=== PATIENT | female | born 1960 | race American Indian/Alaskan Native ===

== ENCOUNTER 2017-09-27 07:32 | Day surgery (SDC) | payer MEDICARE ==
[2017-09-27 08:48] LABS: Basophils % (Auto) 1.1 % (0.0-1.8); Eosinophils % (Auto) 1.7 % (0.0-4.3); Hematocrit 46.8 % (30.3-42.9); Hemoglobin 15.6 gm/dl (10.1-14.3); Mean Corpuscular HGB Conc 33 % (30-34); Mean Corpuscular Hemoglobin 29 pg (28-32); Mean Corpuscular Volume 87 fl (79-97); Platelet Count 200 K/mm3 (140-440); Red Blood Count 5.41 M/mm3 (3.65-5.03); Red Cell Distribution Width 14.5 % (13.2-15.2); White Blood Count 6.9 K/mm3 (4.5-11.0)
[2017-09-27] MEDS ORDERED: NACL 0.9% 500 ML 500 ML IV SCH (09:00)
[2017-09-27] MEDS ORDERED: ECOTRIN PO ONE (09:00)
[2017-09-27 09:04] LABS: Anion Gap 17 mmol/L; BUN/Creatinine Ratio 28; Blood Urea Nitrogen 14 mg/dL (7-17); Calcium 8.7 mg/dL (8.4-10.2); Carbon Dioxide 23 mmol/L (22-30); Glucose 204 mg/dL (65-100); Potassium 4.3 mmol/L (3.6-5.0); Sodium 140 mmol/L (137-145)
[2017-09-27] MEDS ORDERED: XYLOCAINE 2% INFILTRATI ONE (09:37)
[2017-09-27] MEDS ORDERED: HEPARIN/NS 5000 UNIT/500ML(CATH LAB) 1,000 ML IR ONE (09:37)
[2017-09-27] MEDS ORDERED: HEPARIN 10,000 UNITS/10 ML ONE (09:37)
[2017-09-27] MEDS ORDERED: CALAN ONE (09:37)
[2017-09-27] MEDS ORDERED: NITROGLYCERIN SYRINGE 0 ML ONE (09:38)
[2017-09-27] MEDS ORDERED: VERSED ONE (09:38)
[2017-09-27] MEDS: SUBLIMAZE ONE ×2 (09:55→10:00)
--- NOTE | 2017-09-27 10:34 | Short Stay Summary ---
Short Stay Documentation Date of service: 09/27/17 - History H&P: obtained from office - Allergies and Medications Current Medications: Allergies codeine Allergy (Verified 12/21/14 10:11) Anaphylaxis clindamycin Adverse Reaction (Verified 03/05/15 20:37) Unknown Home Medications Medication Instructions Recorded Confirmed Last Taken Type Furosemide [Lasix TAB] 40 mg PO QDAY 09/27/17 09/27/17 09/26/17 History Insulin Aspart [NovoLOG Flexpen] 15 units SQ TIDWM 09/27/17 09/27/17 09/26/17 History Insulin Detemir [Levemir Flextouch] 25 unit SQ QAM 09/27/17 09/27/17 09/26/17 History Insulin Detemir [Levemir Flextouch] 75 unit SQ QHS 09/27/17 09/27/17 09/26/17 History Valsartan [Diovan] 320 mg PO QDAY 09/27/17 09/27/17 09/27/17 06:00 History amLODIPine [Norvasc] 10 mg PO DAILY 09/27/17 09/27/17 09/27/17 06:00 History metFORMIN [Glucophage] 500 mg PO QDAY 09/27/17 09/27/17 09/26/17 History Active Medications Sodium Chloride (Nacl 0.9% 500 Ml) 500 mls @ 50 mls/hr IV DIRECT LUL Stop: 09/27/17 18:59 Last Admin: 09/27/17 09:33 Dose: 50 mls/hr - Physical exam General appearance: no acute distress Integumentary: no rash HEENT: Atraumatic Lungs: Clear to auscultation Breasts: deferred Heart: Regular rate Gastrointestinal: normal Female Genitourinary: deferred Rectal Exam: deferred Extremities: no ischemia Neurological: Normal gait - Brief post op/procedure progress note Date of procedure: 09/27/17 Pre-op diagnosis: CMP, abnormal MPI Post-op diagnosis: same Procedure: LHC, RHC and LV gram Anesthesia: MAC Findings: See report Surgeon: SABRA ROBERTS Estimated blood loss: none Pathology: none Condition: stable - Hospital course Hospital course: Uneventful - Disposition Condition at discharge: Good Disposition: DC-[id number] TO HOME OR SELFCARE Short Stay Discharge Plan Activity: advance as tolerated Weight Bearing Status: Non-Weight Bearing Diet: low fat, low cholesterol, low salt, diabetic Special Instructions: hold Metformin (for 48 hours) Follow up with: JEFE BUCK MD [Primary Care Provider] - 7 Days
--- NOTE | 2017-09-27 11:39 | Cardiac Catherization Report ---
LEFT HEART CATHETERIZATION ORDERING PHYSICIAN: Elizabeth Huerta MD INDICATION FOR PROCEDURE: Cardiomyopathy, abnormal myocardial perfusion imaging, hypoxia at the time of anesthesia induction. PROCEDURES PERFORMED: 1. Selective left and right coronary angiography. 2. Left ventriculography. 3. Right heart catheterization with hemodynamic measurement and oxygen saturation run. DESCRIPTION OF PROCEDURE: After obtaining the consent, the patient was draped using sterile technique. 2% lidocaine was injected into the right groin. Using micropuncture technique, a 5-Trin[place] vascular sheath was inserted into the right common femoral artery and an 8-Trinidadian vascular sheath was inserted into the right common femoral vein. A 5-Trinid[place] JL4 catheter was used to selectively engage left coronary artery. A 5-Trinid[place] JR4 catheter was used to selectively engage the right coronary artery. A 5-Trinid[place] JR4 catheter was used to hand inject left ventriculogram. A 7-Trinidadian [place] catheter was used to measure right-sided hemodynamics and performed oxygen saturation run. No complications occurred during the procedure. Hemostasis was achieved at the end of the procedure using manual pressure. SPECIMEN REMOVED: None. ESTIMATED BLOOD LOSS: Minimal. FINDINGS: HEMODYNAMICS: 1. Aortic pressure 148/105. LV systolic pressure 143 mmHg and LV end diastolic pressure 29 mmHg. There was no significant gradient noted across left ventricular outflow tract. 2. Mean right atrial pressure was 19 mmHg. 3. Right ventricular systolic pressure 45 mmHg and right ventricular end diastolic pressure 19 mmHg. 4. Mean pulmonary artery pressure 37 mmHg. Pulmonary artery systolic pressure of 49 mmHg and the pulmonary artery diastolic pressure 28 mmHg. 5. The mean pulmonary capillary wedge pressure was 27 mmHg. 6. The Carlie cardiac output was 7.3 L per minute with a cardiac index of 3.69 L per minute per m sq. 7. Pulmonary artery saturation is 66%. The right ventricular saturation is 64%, right atrial saturation 70%, aortic saturation 87% and SVC saturation 65%. 8. Cardiac structures: Left ventricle appears to be mildly dilated. There is severe global left ventricular hypokinesis with an ejection fraction estimated between 25 and 30%. CORONARY ANATOMY: 1. This is a right dominant circulation. 2. The left main is a short, angiographically normal vessel. 3. The LAD has diffuse 10% nonobstructive luminal irregularities. There is evidence of a bridging of the mid to distal LAD. 4. The left circumflex artery has mild 10% nonobstructive luminal irregularities. 5. The right coronary artery has mild nonobstructive 10-20% luminal irregularities. The right coronary artery is dominant. IMPRESSION: 1. Evidence of elevated left and right-sided filling pressures. 2. Moderate pulmonary hypertension. 3. Preserved cardiac output. 4. No evidence of an intracardiac shunt. 5. Severe global left ventricular hypokinesis with an ejection fraction estimated 25 and 30%, consistent with nonischemic cardiomyopathy. 6. 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 RECOMMENDATIONS: 1. Continue current medical therapy. 2. P.o. diuresis and afterload reduction. JOB# [id number] MATTI/ZUNILDA
[2017-09-27 14:39] VITALS: BP 134/97
== END 2017-09-27 14:40 | disposition home or self-care (01) ==
LOC: CATHLABREC 07:32
PROVIDERS: ATTEND Internal Medicine
DX: R94.39 Abnormal result of other cardiovascular function study (principal); I42.0 Dilated cardiomyopathy; I27.20 Pulmonary hypertension, unspecified; F17.210 Nicotine dependence, cigarettes, uncomplicated; J44.9 Chronic obstructive pulmonary disease, unspecified; G47.30 Sleep apnea, unspecified; F41.9 Anxiety disorder, unspecified; F32.9 Major depressive disorder, single episode, unspecified; M19.90 Unspecified osteoarthritis, unspecified site; E78.5 Hyperlipidemia, unspecified; E11.9 Type 2 diabetes mellitus without complications; I10 Essential (primary) hypertension; I50.22 Chronic systolic (congestive) heart failure; Z79.4 Long term (current) use of insulin; Z79.899 Other long term (current) drug therapy; Z88.1 Allergy status to other antibiotic agents; Z88.5 Allergy status to narcotic agent; Z79.82 Long term (current) use of aspirin; Z82.49 Family history of ischemic heart disease and other diseases of the circulatory system; Z79.84 Long term (current) use of oral hypoglycemic drugs; Z95.810 Presence of automatic (implantable) cardiac defibrillator
CPT/HCPCS: 36415; 80048; 82962; 85025; 85610; 85730; 93005; 93010; 93460; 99156; 99157; J1644; J2250; J3010; J7040; Q9967